=== PATIENT | male | born 1950 | race Caucasian/White ===

== ENCOUNTER → 2021-11-12 | Outpatient (CLI) | payer MEDICARE ==
--- NOTE | 2021-11-12 23:38 | MR ---
EXAMINATION TYPE: MR knee LT wo con DATE OF EXAM: 11/12/2021 COMPARISON: None HISTORY: Lt knee pain Multiplanar multi echo imaging of the left knee without contrast. There is a moderate size knee joint effusion. The anterior and posterior cruciate ligaments are intac t. Patella is intact. There is some narrowing of the medial joint space. There is vertical and oblique increased signal thr ough the posterior horn of the medial meniscus. The lateral meniscus appears fairly normal. The colla teral ligaments are intact. There is no evidence of a fracture. I see no bony destructive process. 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 Large tear of the posterior horn of the medial meniscu s. Knee joint effusion suggestive of some nonspecific synovitis. No fracture. Mild anterior subcutane ous edema. No evidence of ligamentous tear.
== END | disposition home or self-care (01) ==
LOC: RADMRIMAIN 08:56
PROVIDERS: ATTEND Orthopaedic Surgery Sports Medicine
DX: M17.12 Unilateral primary osteoarthritis, left knee (principal)